=== PATIENT | female | born 1965 | race American Indian/Alaskan Native ===

== ENCOUNTER 2022-04-09 14:35 | Outpatient (CLI) | payer OTHER | END 2022-04-09 14:38 | disposition home or self-care (01) | LOC: SONOGRAMA 14:35 | PROVIDERS: ATTEND Pathology Anatomic Pathology & Clinical Pathology | DX: D34 Benign neoplasm of thyroid gland (principal); E04.2 Nontoxic multinodular goiter ==

== ENCOUNTER 2022-11-09 10:57 | Outpatient (CLI) | payer OTHER ==
[~2022-11-09 10:57] MED LIST: CIPRO500 MG PO; LEVSIN/SL0.125 MG SL; PEPCID AC20 MG PO
== END 2022-11-09 11:01 | disposition home or self-care (01) ==
LOC: SONOGRAMA 10:57
PROVIDERS: ATTEND Pathology Anatomic Pathology & Clinical Pathology
DX: D34 Benign neoplasm of thyroid gland (principal); E04.9 Nontoxic goiter, unspecified; E04.2 Nontoxic multinodular goiter